=== PATIENT | male | born 1980 | race Two or more races ===

== ENCOUNTER 2023-10-06 10:15 | Inpatient (IN) | payer OTHER ==
[~2023-10-06] VITALS: Ht 177.8 cm; Wt 87.1 kg
[2023-10-10 21:40] LABS: HEMATOCRIT 38.6 % (39.0-48.0); HEMOGLOBIN 13.1 g/dL (13-16.00); MEAN CELL VOLUME 80.3 fL (80.0-100.00); MEAN CORPUSCULAR HEMOGLOBIN 27.3 pg (27.00-32.0); PLATELET COUNT 286 K/uL (150-450); RED BLOOD COUNT 4.81 M/uL (4.00-6.00); RED CELL DISTRIBUTION WIDTH 13.7 % (11.5-14.5)
[2023-10-10 21:53] LABS: ALBUMIN 3.7 gm/dL (3.4-5.0); CREATININE SERUM 1.02 mg/dL (0.70-1.30); GFR 79.71; MAGNESIUM 1.7 mg/dL (1.8-2.4); PHOSPHOROUS 3.5 mg/dL (2.5-4.9); POTASSIUM 4.76 mEq/L (3.5-5.1)
[2023-10-11 07:32] LABS: HEMATOCRIT 38.3 % (39.0-48.0); HEMOGLOBIN 13.1 g/dL (13-16.00); MEAN CORPUSCULAR HEMOGLOBIN 27.3 pg (27.00-32.0); PLATELET COUNT 298 K/uL (150-450); RED BLOOD COUNT 4.79 M/uL (4.00-6.00)
[2023-10-11 08:05] LABS: ALBUMIN 3.5 gm/dL (3.4-5.0); CALCIUM 8.7 mg/dL (8.5-10.1); CREATININE SERUM 0.96 mg/dL (0.70-1.30); GFR 85.49; MAGNESIUM 1.9 mg/dL (1.8-2.4); PHOSPHOROUS 3.4 mg/dL (2.5-4.9); POTASSIUM 4.96 mEq/L (3.5-5.1)
[2023-10-13 00:46] LABS: URINE APPEARANCE Clear; URINE BILIRRUBIN Negative (NEGATIVE); URINE BLOOD Negative; URINE COLOR Yellow; URINE GLUCOSE Negative (NEGATIVE); URINE LEUKOCYTE Negative; URINE NITRATE Negative; URINE PROTEIN Negative (NEGATIVE); URINE UROBILINOGEN 0.2 E.U./dl
[2023-10-13 00:57] LABS: URINE BACTERIA 3.7 uL (0.0-1933); URINE RBC 0.4 uL (0.0-20.8); URINE WBC 0.3 uL (0.0-23.2)
[2023-10-13 06:48] LABS: HEMATOCRIT 32.1 % (39.0-48.0); HEMOGLOBIN 11.1 g/dL (13-16.00); MEAN CELL VOLUME 81.9 fL (80.0-100.00); MEAN CORPUSCULAR HEMOGLOBIN 28.4 pg (27.00-32.0); MEAN CORPUSCULAR HGB CONC 34.7 g/dl (32.0-36.0); PLATELET COUNT 227 K/uL (150-450); RED BLOOD COUNT 3.92 M/uL (4.00-6.00); RED CELL DISTRIBUTION WIDTH 13.9 % (11.5-14.5)
[2023-10-13 07:15] LABS: CALCIUM 8.4 mg/dL (8.5-10.1); CREATININE SERUM 0.85 mg/dL (0.70-1.30); GFR 98.38; POTASSIUM 3.93 mEq/L (3.5-5.1)
[2023-10-15] MEDS ORDERED: PERCOCET 5-3251 EACH PO (12:23)
== END 2023-10-15 12:42 | disposition home or self-care (01) | DRG 330 ==
LOC: O/R 10-10 06:46 → SURH 10-10 10:15 → SURG 10-10 19:16 → SURH 10-13 16:50
PROVIDERS: Internal Medicine; ADMIT Surgery; ATTEND Surgery
PROC: 0DBP4ZZ Excision of Rectum, Percutaneous Endoscopic Approach (ICD-10-PCS; 2023-10-10)
PROC: 07BB4ZX Excision of Mesenteric Lymphatic, Percutaneous Endoscopic Approach, Diagnostic (ICD-10-PCS; 2023-10-10)
PROC: 0DBU4ZZ Excision of Omentum, Percutaneous Endoscopic Approach (ICD-10-PCS; 2023-10-10)
PROC: 0DTN4ZZ Resection of Sigmoid Colon, Percutaneous Endoscopic Approach (ICD-10-PCS; principal; 2023-10-10 14:00)
DX: C19 Malignant neoplasm of rectosigmoid junction (principal); K62.5 Hemorrhage of anus and rectum; R59.0 Localized enlarged lymph nodes

== ENCOUNTER 2023-12-01 07:14 | Day surgery (SDC) | payer OTHER ==
[~2023-12-01 07:14] MED LIST: PERCOCET 5-3251 EACH PO
[2023-12-01] MEDS ORDERED: TRAM1TAB98 PO (15:27)
== END 2023-12-01 16:10 | disposition home or self-care (01) ==
LOC: CIR.AMB 07:14
PROVIDERS: ATTEND Surgery
DX: C19 Malignant neoplasm of rectosigmoid junction (principal); Z20.822 Contact with and (suspected) exposure to COVID-19

== ENCOUNTER 2024-09-20 06:30 | Day surgery (SDC) | payer OTHER ==
[~2024-09-20 06:30] MED LIST changes: +TRAM1TAB98 PO
[2024-09-20] MEDS ORDERED: TRAM1TAB98 PO (11:22)
[2024-09-20] MEDS ORDERED: LIDOCAINE HCL 1%/EPINEPHRINE 20ML VIAL IJ ONE (11:30)
[2024-09-20] MEDS ORDERED: CEFAZOLIN SODIUM 1,000 MG in 0.9 % SODIUM CHLORIDE 50 ML IV ONE (11:30)
[2024-09-20] MEDS ORDERED: BUPIVACAINE HCL 30 ML VIAL IJ ONE (11:30)
== END 2024-09-20 12:55 | disposition home or self-care (01) ==
LOC: CIR.AMB 06:30
PROVIDERS: ATTEND Surgery
DX: T82.594A Other mechanical complication of infusion catheter, initial encounter (principal); C19 Malignant neoplasm of rectosigmoid junction